=== PATIENT | male | born 1985 | race Caucasian/White ===

== ENCOUNTER 2023-05-16 07:27 | Emergency (ER) | payer OTHER ==
[~2023-05-16] VITALS: Ht 170.2 cm; Wt 81.6 kg
[2023-05-16 08:54] VITALS: BP 99/82; TEMP 98.2; O2SAT 100
== END 2023-05-16 08:55 | disposition home or self-care (01) ==
LOC: ER 07:30
DX: T25.021A Burn of unspecified degree of right foot, initial encounter (principal); L84 Corns and callosities; M79.5 Residual foreign body in soft tissue; X08.8XXA Exposure to other specified smoke, fire and flames, initial encounter; Y93.89 Activity, other specified; Y92.89 Other specified places as the place of occurrence of the external cause; Y99.8 Other external cause status
CPT/HCPCS: 73630-TC